=== PATIENT | female | born 1970 | race Caucasian/White ===

== ENCOUNTER → 2017-04-27 | Outpatient (CLI) | payer OTHER | END | disposition home or self-care (01) | LOC: CFH 11:18 | PROVIDERS: ATTEND Obstetrics & Gynecology Gynecology | DX: Z12.31 Encounter for screening mammogram for malignant neoplasm of breast (principal) | CPT/HCPCS: 77063; G0202 ==

== ENCOUNTER → 2017-05-17 | Outpatient (CLI) | payer OTHER | END | disposition home or self-care (01) | LOC: CFH 15:09 | PROVIDERS: ATTEND Obstetrics & Gynecology Gynecology | DX: R92.1 Mammographic calcification found on diagnostic imaging of breast (principal); N64.89 Other specified disorders of breast; Z80.3 Family history of malignant neoplasm of breast | CPT/HCPCS: 77065 ==

== ENCOUNTER → 2017-07-07 | Outpatient (CLI) | payer OTHER ==
[~2017-07-07] MED LIST: LIDOCAINE 1%, 20ML ONE
== END ==
LOC: CFH 10:17
PROVIDERS: ATTEND Obstetrics & Gynecology Gynecology
DX: R92.2 Inconclusive mammogram (principal); Z80.3 Family history of malignant neoplasm of breast
CPT/HCPCS: 19081; 77065; 88305; J3490

== ENCOUNTER 2018-06-07 11:02 | Outpatient (CLI) | payer OTHER | END 2018-06-07 23:59 | disposition home or self-care (01) | LOC: CFH 11:02 | PROVIDERS: ATTEND Obstetrics & Gynecology Gynecology | DX: Z12.31 Encounter for screening mammogram for malignant neoplasm of breast (principal) | CPT/HCPCS: 77063; 77067 ==

== ENCOUNTER → 2020-06-11 | Outpatient (CLI) | payer OTHER ==
[2020-06-11 09:06] LABS: ALANINE AMINOTRANSFERASE 131 U/L (12-78); ALBUMIN 4.2 g/dL (3.4-5.0); ANION GAP 7 mmol/L (5-15); CALCIUM 9.2 mg/dL (8.5-10.1); CHLORIDE 106 mmol/L (98-107); CHOLESTEROL, TOTAL 276 mg/dL (140-239); CREATININE 0.63 mg/dL (0.55-1.02)
[2020-06-11 09:32] LABS: ALKALINE PHOSPHATASE 136 U/L (45-117); BILIRUBIN,TOTAL 1.3 mg/dL (0.2-1.0); CHOL/HDL RATIO 3.9; HDL CHOL % 25 % (28-40); HDL CHOLESTEROL (DIRECT) 70 mg/dL (40-60); LDL CHOLESTEROL,CALCULATED 188 mg/dL (54-169); LDL/HDL RATIO 2.7 (0.5-3.0); TOTAL PROTEIN 8.3 g/dL (6.4-8.2); TRIGLYCERIDES 90 mg/dL (50-200); VLDL CHOLESTEROL 18 mg/dL (0-25)
== END | disposition home or self-care (01) ==
LOC: LAB 08:40
PROVIDERS: ATTEND Family Medicine
DX: Z13.220 Encounter for screening for lipoid disorders (principal); Z13.1 Encounter for screening for diabetes mellitus; E55.9 Vitamin D deficiency, unspecified
CPT/HCPCS: 36415; 80053; 80061; 82306; 82607; 83036

== ENCOUNTER → 2020-09-26 | Outpatient (CLI) | payer OTHER ==
[2020-09-26 10:06] LABS: ALANINE AMINOTRANSFERASE 200 U/L (12-78); ALBUMIN 3.9 g/dL (3.4-5.0); CALCIUM 9.7 mg/dL (8.5-10.1); CHLORIDE 104 mmol/L (98-107); CREATININE 0.55 mg/dL (0.55-1.02)
[2020-09-26 10:09] LABS: ALKALINE PHOSPHATASE 109 U/L (45-117); BILIRUBIN,TOTAL 0.6 mg/dL (0.2-1.0); GAMMA GLUTAMYL TRANSPEPTIDASE 985 U/L (5-55)
[2020-09-26 10:15] LABS: ANION GAP 6 mmol/L (5-15)
== END | disposition home or self-care (01) ==
LOC: LAB 09:42
PROVIDERS: ATTEND Family Medicine
DX: R94.5 Abnormal results of liver function studies (principal)
CPT/HCPCS: 36415; 80053; 82977

== ENCOUNTER → 2020-10-15 | Outpatient (CLI) | payer OTHER ==
[2020-10-15 08:57] LABS: BASOPHILS % (AUTO) 1 % (0-1); EOSINOPHILS % (AUTO) 3 % (1-7); LYMPHOCYTES % (AUTO) 25 % (22-44); MEAN CORPUSCULAR HEMOGLOBIN 35.3 pg (27.0-34.8); MEAN CORPUSCULAR HGB CONC 34.2 g/dL (32.4-35.8); MEAN PLATELET VOLUME 8.8 fL (7.4-10.4); MONOCYTES % (AUTO) 14 % (2-9); NEUTROPHILS % (AUTO) 57 % (42-75); PLATELET COUNT 177 x10^3/uL (130-400); RED BLOOD COUNT 3.85 x10^6/uL (3.82-5.3); RED CELL DISTRIBUTION WIDTH 11.9 % (9.6-15.2)
[2020-10-15 09:03] LABS: ALANINE AMINOTRANSFERASE 120 U/L (12-78); ALBUMIN 3.3 g/dL (3.4-5.0); ANION GAP 7 mmol/L (5-15); CALCIUM 9.4 mg/dL (8.5-10.1); CHLORIDE 109 mmol/L (98-107); CREATININE 0.47 mg/dL (0.55-1.02); GAMMA GLUTAMYL TRANSPEPTIDASE 451 U/L (5-55)
[2020-10-15 09:05] LABS: ALKALINE PHOSPHATASE 79 U/L (45-117); BILIRUBIN,TOTAL 0.4 mg/dL (0.2-1.0); TOTAL PROTEIN 7.2 g/dL (6.4-8.2)
== END | disposition home or self-care (01) ==
LOC: CFH 07:46
PROVIDERS: ATTEND Family Medicine
DX: Z12.31 Encounter for screening mammogram for malignant neoplasm of breast (principal); R94.5 Abnormal results of liver function studies
CPT/HCPCS: 36415; 77063; 77067; 80053; 82977; 85025; 86038; 86225; 86235

== ENCOUNTER 2020-10-18 21:08 | Emergency (ER) | payer OTHER ==
[~2020-10-18] VITALS: Ht 162.6 cm; Wt 60.0 kg
[2020-10-18 21:58] LABS: BASOPHILS % (AUTO) 2 % (0-1); EOSINOPHILS % (AUTO) 3 % (1-7); LYMPHOCYTES % (AUTO) 19 % (22-44); MEAN PLATELET VOLUME 8.8 fL (7.4-10.4); MONOCYTES % (AUTO) 15 % (2-9); NEUTROPHILS % (AUTO) 61 % (42-75); PLATELET COUNT 212 x10^3/uL (130-400); RED BLOOD COUNT 3.92 x10^6/uL (3.82-5.3); RED CELL DISTRIBUTION WIDTH 11.9 % (9.6-15.2)
[2020-10-18 22:03] LABS: MICROSCOPIC NOT IND
[2020-10-18 22:04] LABS: ALANINE AMINOTRANSFERASE 83 U/L (12-78); ALBUMIN 3.6 g/dL (3.4-5.0); ANION GAP 4 mmol/L (5-15); CALCIUM 9.5 mg/dL (8.5-10.1); CHLORIDE 107 mmol/L (98-107)
[2020-10-18 22:07] LABS: ALKALINE PHOSPHATASE 87 U/L (45-117); BILIRUBIN,TOTAL 0.5 mg/dL (0.2-1.0); TOTAL PROTEIN 7.9 g/dL (6.4-8.2)
--- NOTE | 2020-10-18 23:10 | NUR ---
To room 37, Dr Overton to evaluate.
--- NOTE | 2020-10-18 23:27 | NUR ---
PT PRESENTS TO ED WITH ABD PAIN, CRAMPING AND BLOATING. ERP AT BEDSIDE, 20 G IV TO RIGHT AC PLACED. PT IN GOWN AND RESTING ON GURNEY, DENIES NEEDS AT THIS TIME.
[2020-10-18] MEDS ORDERED: SODIUM CHLORIDE FLUSH 10ML SYR IVF ONE (23:30)
--- NOTE | 2020-10-18 23:40 | NUR ---
pt to ct
[2020-10-18] MEDS ORDERED: OMNIPAQUE 350 MG/ML, 100ML BOTTLE ONE (23:45)
--- NOTE | 2020-10-18 23:55 | NUR ---
pt back from ct, placed on continuous monitoring, and resting on gurney. denies needs at this time.
--- NOTE | 2020-10-19 00:32 | NUR ---
PT AMBULATORY WITH STEADY GAIT FROM ROOM TO BATHROOM. PT DENIES ANY ADDITIONAL NEEDS AT THIS TIME. CONTINUOUS MONITORING IN PLACE. SPOUSE AT BEDSIDE. CALL LIGHT IN REACH
[2020-10-19 00:37] VITALS: BP 103/70
--- NOTE | 2020-10-19 00:45 | NUR ---
Patient given discharge instructions and they have confirmed that they understand the instructions. Patient ambulatory with steady gait.
== END 2020-10-19 00:47 | disposition home or self-care (01) ==
LOC: ED 10-19
DX: N83.292 Other ovarian cyst, left side (principal); K63.89 Other specified diseases of intestine; R94.5 Abnormal results of liver function studies
CPT/HCPCS: 36415; 74177; 76830; 80053; 81003; 83690; 85025; 99285; Q9967